=== PATIENT | male | born 1955 | race Caucasian/White ===

== ENCOUNTER 2017-06-03 18:41 | Emergency (ER) | payer OTHER ==
[~2017-06-03] VITALS: Ht 170.2 cm; Wt 92.1 kg
[2017-06-03 18:45] VITALS: BP 129/76
--- NOTE | 2017-06-03 20:10 | ED DYSPNEA/ASTHMA COMPLAINT ---
History of Present Illness General Chief Complaint: Upper Respiratory Sx/Fever Stated Complaint: COUGH Source: patient, family Exam Limitations: no limitations Vital Signs & Intake/Output Vital Signs & Intake/Output Vital Signs Date Time Temp Pulse Resp B/P B/P Pulse O2 O2 Flow FiO2 Mean Ox Delivery Rate 06/03 2005 Room Air 06/03 1845 97.2 65 15 129/76 97 Room Air Room Air Allergies Coded Allergies: No Known Allergies (06/03/17) Reconcile Medications Aspirin (Lo-Dose Aspirin EC) 81 MG TABLET.DR 1 TAB PO DAILY HEART/BLOOD ( Reported) Atorvastatin Calcium 80 MG TABLET 1 TAB PO DAILY CHOLESTEROL (Reported) Azithromycin (Zithromax) 250 MG TABLET 1 DP PO AD ATYPICAL PNEUMONIA 2 the first day followed by 1 for days 2-5 Benzonatate (Tessalon Perle) 100 MG CAPSULE 1 CAP PO TID PRN COUGH Clopidogrel Bisulfate (Clopidogrel) 75 MG TABLET 1 TAB PO DAILY BLOOD THINNER (Reported) Finasteride 5 MG TABLET 1 TAB PO DAILY PROSTATE (Reported) Fluticasone Propionate 50 MCG/ACTUATION SPRAY.SUSP 2 SPRAY NASB PRN ALLERGIES (Reported) Levothyroxine Sodium (Unknown Strength) TABLET (Unknown Dose) PO DAILY UNKNOWN (Reported) Metoprolol Succinate 50 MG TAB.ER.24H 1 TAB PO DAILY HEART/BP (Reported) Terazosin HCl 10 MG CAPSULE 1 CAP PO DAILY PROSTATE (Reported) Triage Note: PT TO ED FOR C/C OF COUGH FOR THE LAST FEW DAYS. MINIMAL PHLEGM. DENIES CHEST PAIN, DENIES SOB, FEVERS OR CHILLS. Triage Nurses Notes Reviewed? yes HPI: Patient has had a cough for the past week. No fevers or chills. Patient denies chest pain or chest tightness. There is no shortness of breath. Patient states that it feels like something the past, but it is very rare for him to cough something up. Patient states when he does it is very hard and almost looks like spaghetti. Patient denies any hemoptysis. There is no orthopnea. There is no dyspnea on exertion. Past History Travel History Traveled to [place] past 21 day No Medical History Any Pertinent Medical History? 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 No Review of Systems Review of Systems Constitutional: Reports: no symptoms. EENTM: Reports: no symptoms. Respiratory: Reports: see HPI, cough. Cardiovascular: Reports: no symptoms. GI: Reports: no symptoms. Musculoskeletal: Reports: no symptoms. Neurological/Psychological: Reports: no symptoms. Immunologic/Allergic: Reports: no symptoms. Physical Exam Physical Exam General Appearance: well developed/nourished, alert, awake, mild distress Head: atraumatic, normal appearance Eyes: Bilateral: PERRL, EOMI. Ears, Nose, Throat: normal pharynx, normal ENT inspection, hearing grossly normal Neck: normal inspection, supple, full range of motion Respiratory: normal breath sounds, chest non-tender, no respiratory distress, lungs clear Cardiovascular: regular rate/rhythm, normal peripheral pulses Gastrointestinal: normal bowel sounds, soft, non-tender, no organomegaly Extremities: normal inspection, no edema Neurologic/Psych: no motor/sensory deficits, awake, alert, oriented x 3, normal gait, normal mood/affect Lymphatic: no anterior cervical elliot Core Measures ACS in differential dx? No Severe Sepsis Present: No Septic Shock Present: No Progress Differential Diagnosis: bronchitis, CHF, COPD, musculoskeletal pain, pulmonary embolism, pneumonia Plan of Care: Orders Procedure Date/time Status XRY-CHEST XRAY, PA AND LATERAL 06/03 2009 Active Diagnostic Imaging: Viewed by Me: Radiology Read. Discussed w/RAD: Radiology Read. CXR Impression: PATIENT: HIREN WASHINGTON PRESENT AGE: 61 PATIENT ACCOUNT NO: [id number] : 59 LOCATION: [facility] ORDERING PHYSICIAN: PALMA GARCIA MD SERVICE DATE: 06/03/17 EXAM TYPE: RAD - XRY-CHEST XRAY, PA AND LATERAL EXAMINATION: XR CHEST CLINICAL INFORMATION: Cough COMPARISON: None TECHNIQUE: 2 views of the chest were obtained. FINDINGS: There is an eventration of the right hemidiaphragm. No pleural effusion or pneumothorax seen. Tortuous aorta. Normal heart size. Streaky interstitial opacity seen in the left lower lobe but no focal consolidation. Regional skeleton intact with no acute osseous abnormality. IMPRESSION: Streaky interstitial opacity in the left lower lobe could represent bronchitis or interstitial pneumonitis. No dense focal consolidation to suggest lobar pneumonia. DICTATED BY: KYLEE LICONA MD DATE/TIME DICTATED:06/03/172040 [employer] SALES LEADER:DARIN DATE/TIME TRANSCRIBED:06/03/172040 CONFIDENTIAL, DO NOT COPY WITHOUT APPROPRIATE AUTHORIZATION. <Electronically signed in Other Vendor System> SIGNED BY: KYLEE LICONA MD 06/03/172044 Initial ED EKG: none Departure Departure Disposition: HOME OR SELF CARE Condition: Stable Clinical Impression Primary Impression: Atypical pneumonia Referrals: UNKNOWN (PCP/Family) Additional Instructions: TAKE ANTIBIOTICS PRECRIBED RETURN IF SYMPTOMS WORSEN OR FOR ANY CONCERNS Departure Forms: Customer Survey General Discharge Information Prescriptions: Current Visit Scripts Azithromycin (Zithromax) 1 DP PO AD #6 TAB 2 the first day followed by 1 for days 2-5 Benzonatate (Tessalon Perle) 1 CAP PO TID PRN COUGH #30 CAP Critical Care Note Critical Care Note Critical Care Time: non-applicable
[2017-06-03] MEDS ORDERED: FINASTERIDE5 M1 PO (20:25)
[2017-06-03] MEDS ORDERED: LEVOTHYROXINE25 MCG PO (20:25)
[2017-06-03] MEDS ORDERED: METOPROLOL SUCC50 M2 PO (20:25)
[2017-06-03] MEDS ORDERED: CLOPIDOGREL75 M1 PO (20:26)
[2017-06-03] MEDS ORDERED: TERAZOSIN HCL10 M1 PO (20:26)
[2017-06-03] MEDS ORDERED: FLUTICASONE PRO16 GM NASB (20:26)
[2017-06-03] MEDS ORDERED: LO-DOSE ASPIRIN81 MG PO (20:26)
[2017-06-03] MEDS ORDERED: ATORVASTATIN CA80 M1 PO (20:27)
--- NOTE | 2017-06-03 20:45 | RADIOLOGY REPORT ---
EXAMINATION: XR CHEST CLINICAL INFORMATION: Cough COMPARISON: None TECHNIQUE: 2 views of the chest were obtained. FINDINGS: There is an eventration of the right hemidiaphragm. No pleural effusion or pneumothorax seen. Tortuous aorta. Normal heart size. Streaky interstitial opacity seen in the left lower lobe but no focal consolidation. Regional skeleton intact with no acute osseous abnormality. IMPRESSION: Streaky interstitial opacity in the left lower lobe could represent bronchitis or interstitial pneumonitis. No dense focal consolidation to suggest lobar pneumonia.
[2017-06-03] MEDS ORDERED: TESSALON PERLE100 M1 PO (20:55)
[2017-06-03] MEDS ORDERED: ZITHROMAX250 M2 PO (20:55)
== END 2017-06-03 21:00 ==
LOC: ERH 18:41
DX: J18.9 Pneumonia, unspecified organism (principal)